=== PATIENT | male | born 1950 | race African-American/Black ===

== ENCOUNTER 2022-04-27 11:15 | Outpatient (CLI) | payer MEDICARE, BC ==
[2022-04-27 13:19] LABS: Anion Gap 23 mmol/L (10-20); BUN (Urea Nitrogen) 87 mg/dL (8.4-25.7); Calc. Creatinine Clearance 0 mL/min (70-130); Calcium 8.6 mg/dL (7.8-10.44); Carbon Dioxide 18 mmol/L (23-31); Chloride 105 mmol/L (98-107); Estimated GFR 3; Glucose 101 mg/dL (83-110); Potassium 5.1 mmol/L (3.5-5.1); Sodium 141 mmol/L (136-145)
[2022-04-27 13:33] LABS: #Basophils 0.1 10x3/uL (0.0-0.2); #Eosinphils 0.3 10x3/uL (0.0-0.5); #Monocytes 0.6 10x3/uL (0.0-1.1); #Neutrophils 6.5 10x3/uL (1.5-8.4); %Basophils 0.5 % (0.0-2.0); %Lymphocytes 18.6 % (18.0-47.0); %Monocytes 6.4 % (0.0-10.0); %Neutrophils 71.2 % (40.0-75.0); Mean Corpuscular HGB CONC 33.2 g/dL (32.0-36.0); Mean Corpuscular Hemoglobin 27.3 pg (27.0-33.0); Mean Corpuscular Volume 82.4 fl (81.2-95.1); Mean Platelet Volume 10.8 fl (7.4-10.4); Platelet Count 130 10x3/uL (150-450); Red Blood Cell (RBC) Count 2.56 10x6/uL (4.32-5.72); White Blood Cell (WBC) Count 9.5 10x3/uL (3.5-10.5)
[2022-04-27 13:55] LABS: Anisocytosis SLIGHT = 6-15 cells (100X) (0-5/hpf); Hypochromia SLIGHT = 6-15 cells (100X) (0-5/hpf); Macrocytosis SLIGHT = 6-15 cells (100X) (0-5/hpf); Microcytosis SLIGHT = 6-15 cells (100X) (0-5/hpf); Schistocytes SLIGHT = 2-5 cells (100X) (0-1/hpf); Target Cells SLIGHT = 2-5 cells (100X) (0-1/hpf); Tear Drops SLIGHT = 2-5 cells (100X) (0-1/hpf)
== END 2022-04-27 11:16 | disposition home or self-care (01) ==
LOC: LABBT 11:15
PROVIDERS: ATTEND Specialist
DX: Z01.818 Encounter for other preprocedural examination (principal); Z20.822 Contact with and (suspected) exposure to COVID-19
CPT/HCPCS: 80048; 85025; 87811; 93005; 93010

== ENCOUNTER 2022-09-28 11:38 | Day surgery (SDC) | payer MEDICARE, BC ==
[2022-09-27 09:33] VITALS: BMI 30.9
[2022-09-28] MEDS ORDERED: fentaNYL PF 100 MCG/2 ML SYRINGE ONE (13:10)
[2022-09-28] MEDS ORDERED: Protamine Sulfate 50 MG/5 ML VIAL ONE (13:12)
[2022-09-28] MEDS ORDERED: Bupivacaine HCl 0.5%/Epinephrine 1:200,000/PF 30 ml Vial ONE (13:12)
[2022-09-28] MEDS ORDERED: Heparin 5,000 UNITS/ML VIAL ONE (13:12)
[2022-09-28] MEDS ORDERED: Lidocaine 2% PF 5 ML VIAL ONE (13:12)
[2022-09-28] MEDS ORDERED: Fentanyl 100 MCG/2 ML VIAL ONE (13:34)
[2022-09-28] MEDS ORDERED: Ropivacaine 0.5% HCl/PF (150 MG/30 ML VIAL) ONE (13:34)
[2022-09-28] MEDS ORDERED: CEFAZOLIN 2 GM VIAL ONE (13:44)
[2022-09-28] MEDS ORDERED: Sodium Chloride 0.9% 100 ML ONE (13:44)
[2022-09-28 13:46] LABS: #Eosinphils 0.2 thou/uL (0.0-0.7); #Monocytes 0.9 thou/uL (0.11-0.59); #Neutrophils 4.5 thou/uL (1.40-6.50); %Basophils 0.1 % (0.0-1.0); %Lymphocytes 26.4 % (21.0-51.0); %Monocytes 11.5 % (0.0-10.0); Hemoglobin 9.1 g/dL (14.0-18.0); Mean Corpuscular HGB CONC 33.2 g/dL (32.0-36.0); Mean Corpuscular Hemoglobin 30.2 pg (27.0-31.0); Mean Platelet Volume 8.2 fL (7.4-10.4); Platelet Count 202 10x3/uL (130-400); RBC Distribution Width 14.4 % (11.5-14.5); Red Blood Cell (RBC) Count 2.99 mill/uL (4.70-6.10); White Blood Cell (WBC) Count 7.5 10x3/uL (4.8-10.8)
[2022-09-28 13:50] LABS: Anion Gap 15 mmol/L (10-20); BUN (Urea Nitrogen) 25 mg/dL (8.4-25.7); Calc. Creatinine Clearance 13 mL/min (70-130); Calcium 8.9 mg/dL (7.8-10.44); Carbon Dioxide 28 mmol/L (23-31); Chloride 98 mmol/L (98-107); Estimated GFR 7; Glucose 87 mg/dL (83-110); Potassium 4.2 mmol/L (3.5-5.1); Sodium 137 mmol/L (136-145)
[2022-09-28] MEDS ORDERED: Ondansetron PF 4 MG/2 ML Vial ONE (14:00)
[2022-09-28] MEDS ORDERED: PROPOFOL 200 MG/20 ML VIAL ONE (14:00)
[2022-09-28] MEDS ORDERED: Dexamethasone 20 MG/5 ML VIAL ONE (14:00)
[2022-09-28] MEDS ORDERED: Lidocaine 1% PF 5 ML VIAL ONE (14:00)
[2022-09-28] MEDS ORDERED: Bupivacaine/Epinephrine 0.25% 30 ML VIAL ONE (14:25)
[2022-09-28] MEDS ORDERED: Heparin 1,000 UNITS/ML VIAL ONE (17:19)
[2022-09-28] MEDS ORDERED: HYDROcodone/Acetaminophen 5/325 mg Tablet ONE (17:57)
== END 2022-09-28 18:10 | disposition home or self-care (01) ==
LOC: SDC 11:38
PROVIDERS: ATTEND Specialist
PROC: 05SC0ZZ Reposition Left Basilic Vein, Open Approach (ICD-10-PCS; principal; 2022-09-28)
DX: N18.6 End stage renal disease (principal); I87.8 Other specified disorders of veins; Z79.899 Other long term (current) drug therapy; Z99.2 Dependence on renal dialysis
CPT/HCPCS: 80048; 85025; 93005; 93010; C1776; J1100; J1644; J2001; J2405; J2704; J2720; J2795; J3010; J3490

== ENCOUNTER 2023-07-15 01:00 | Inpatient (IN) | payer MEDICARE, BC ==
[2023-07-15] MEDS ORDERED: NOREPINEPHRINE 8 MG/250 ML-D5W 250 ML ONE (01:13)
[2023-07-15] MEDS ORDERED: KETAMINE 100 MG/ML (5ML VIAL) ONE (01:17)
[2023-07-15] MEDS ORDERED: Rocuronium Bromide 10 MG/ML (10ML VIAL) ONE (01:17)
[2023-07-15] MEDS ORDERED: Calcium Chloride 1 GM/10 ML Abboject SYRINGE ONE ×2 (01:18→01:20)
[2023-07-15] MEDS ORDERED: Sodium Bicarb 50 MEQ/50 ML Abboject 8.4% SYRINGE ONE (01:20)
[2023-07-15] MEDS ORDERED: Magnesium 2 GM/50 ML BAG (IN WATER) ONE (01:34)
[2023-07-15] MEDS ORDERED: Vasopressin 20 UNITS/ML VIAL ONE ×2 (01:52)
[2023-07-15 01:54] LABS: Analyzer IN Cardio ER; Base Excess (BEa) -14.2 mEq/L (-2.0 to +3.0); CO2 Tension 32.6 mmHg (35.0-45.0); Calcium, Ionized (arterial) 1.37 mmol/L (1.12-1.30); Carboxyhemoglobin (COHb) 3.2 gm% (0.0-3.0); Hematocrit-ABG 22 % (42.0-52.0); Hemoglobin (Hb) 7.6 g/dL (14.0-18.0); O2 Tension (PaO2), arterial 525.9 mmHg (> 70.0)
[2023-07-15 01:54] LABS: Manual Diff?? YES; Mean Corpuscular HGB CONC 30.5 g/dL (32.0-36.0); Mean Corpuscular Hemoglobin 29.1 pg (27.0-31.0); Platelet Count 147 10x3/uL (130-400); RBC Distribution Width 16.6 % (11.5-14.5); Red Blood Cell (RBC) Count 2.58 mill/uL (4.70-6.10); White Blood Cell (WBC) Count 18.6 10x3/uL (4.8-10.8)
[2023-07-15 01:59] LABS: Actual Bicarbonate (HCO3a) 12.5 mEq/L (22-28); Potassium - ABG Lab 7.41 mmol/L (3.70-5.30); Puncture Site RBA; pH, Arterial 7.203 (7.35-7.45)
[2023-07-15] MEDS ORDERED: Fentanyl CADD 100 ML IV SCH (02:00)
[2023-07-15 02:06] LABS: Delete Auto Diff?? YES
[2023-07-15 02:08] LABS: PTT 25.3 sec (22.9-36.1); Prothrombin Time 23.2 sec (12.0-14.7)
[2023-07-15 02:09] LABS: Hematocrit 24.6 % (42.0-52.0); Hemoglobin 7.5 g/dL (14.0-18.0); Mean Corpuscular Volume 95.3 fl (78.0-98.0)
[2023-07-15 02:20] LABS: Troponin I 0.114 ng/mL (< 0.028)
[2023-07-15] MEDS ORDERED: Cefepime 2 GM VIAL ONE (02:28)
[2023-07-15] MEDS ORDERED: Sodium Chloride 0.9% 100 ML ONE (02:28)
[2023-07-15] MEDS ORDERED: Vancomycin 1 GM/200 ML (FROZEN) BAG ONE (02:28)
[2023-07-15] MEDS ORDERED: Sodium Bicarbonate 150 MEQ in Dextrose 5% in Water 1,000 ML IV SCH (02:30)
[2023-07-15 02:37] LABS: Bacteria/HPF None Seen HPF (None Seen); Bilirubin Negative (Negative); Blood, Urine Negative (Negative); CAUTI Indications for Culture Alt mental st,lethar; Clarity Turbid (Clear); Glucose, Urine (Dipstick) 100 mg/dL (Negative); Ketone, Urine Negative (Negative); Leukocyte Negative Leu/uL (Negative); Nitrite Negative (Negative); Protein, Urine (Dipstick) 100 mg/dL (Neg-Trace); RBC/HPF 0-3 HPF (0-3); Specific Gravity, Urine 1.013 (1.002-1.036); Urobilinogen Normal mg/dL (Less than 2); pH, Urine 7.5 (5.0-9.0)
[2023-07-15 02:40] LABS: Urine Culture Reflex No No
[2023-07-15 02:43] LABS: AST (SGOT) 1184 U/L (5-34); Albumin 2.4 g/dL (3.4-4.8); Alkaline Phosphatase 193 U/L (40-110); Anion Gap 37 mmol/L (10-20); BUN (Urea Nitrogen) 63 mg/dL (8.4-25.7); Bilirubin, Total 1.2 mg/dL (0.2-1.2); CK (CPK) 64 U/L (30-200); Calc. Creatinine Clearance 0 mL/min (70-130); Calcium 13.6 mg/dL (7.8-10.44); Carbon Dioxide 11 mmol/L (23-31); Chloride 92 mmol/L (98-107); Estimated GFR 8; Globulin 2.4 g/dL (2.4-3.5); Glucose 402 mg/dL (83-110); Lipase 17 U/L (8-78); Magnesium 5.7 mg/dL (1.6-2.6); Potassium 8.2 mmol/L (3.5-5.1); Protein, Total 4.8 g/dL (5.8-8.1); Sodium 132 mmol/L (136-145)
[2023-07-15 02:57] LABS: ALT (SGPT) 1211 U/L (8-55)
[2023-07-15 03:01] LABS: Anisocytosis SLIGHT = 6-15 cells HPF (0-5); Band 30 % (5-11); Burr Cells SLIGHT = 2-5 cells HPF (0-1); CellaVision Operator ID LAB.JMM; Lymphocytes 14 % (21-51); Macrocytosis SLIGHT = 6-15 cells HPF (0-5); Monocytes 2 % (0-10); Neutrophil 54 % (42-75); Nucleated RBC (Manual Ct) 2 % (0); Platelet Adequacy Comment Platelets Normal; Poikilocytosis SLIGHT = 6-15 cells HPF (0-5); Polychromasia SLIGHT = 2-3 cells HPF (0-2); Smudge Cells 6.6 %; Total Cell Count 106
[2023-07-15] MEDS ORDERED: Insulin Regular 300 UNITS/3 ML VIAL ONE (03:21)
[2023-07-15] MEDS ORDERED: Insulin Regular 300 UNITS/3 ML VIAL IVP SCH (03:45)
[2023-07-15] MEDS ORDERED: Acetaminophen 650 MG Suppository PR PRN (03:57)
[2023-07-15] MEDS ORDERED: Ondansetron ODT 4 MG TAB PO PRN (03:57)
[2023-07-15] MEDS ORDERED: Acetaminophen 325 MG TAB PO PRN (03:57)
[2023-07-15] MEDS ORDERED: Ondansetron PF 4 MG/2 ML Vial IVP PRN (03:57)
[2023-07-15] MEDS ORDERED: Ventilator Sedation Protocol 1 EACH FS SCH (04:00)
[2023-07-15] MEDS ORDERED: LOKELMA 10 GM PACKET PO SCH (04:00)
[2023-07-15] MEDS ORDERED: Lorazepam 2 MG/ML VIAL SLOW IVP PRN (04:15)
[2023-07-15] MEDS ORDERED: Fentanyl BOLUS 250 ML IVPB PRN (04:15)
[2023-07-15] MEDS ORDERED: Propofol BOLUS 1,000 MG/100 ML VIAL IV PRN (04:15)
[2023-07-15] MEDS ORDERED: Propofol 1,000 MG/100 ML VIAL IV PRN (04:15)
[2023-07-15] MEDS ORDERED: Morphine 2 MG/ML VIAL SLOW IVP PRN (04:15)
[2023-07-15] MEDS ORDERED: Pantoprazole 40 MG VIAL ONE (04:28)
[2023-07-15] MEDS ORDERED: Meropenem 1 GM in Sodium Chloride 0.9% 100 ML IVPB SCH ×2 (04:30→06:00)
[2023-07-15] MEDS ORDERED: Pantoprazole 40 MG VIAL IVP SCH ×2 (05:15→21:00)
[2023-07-15] MEDS ORDERED: Hydrocortisone Sod Succ/PF 100 mg/2 ml Vial IVP SCH (05:30)
[2023-07-15 05:55] LABS: AST (SGOT) Greater than 3500 U/L (5-34); Albumin 2.5 g/dL (3.4-4.8); Alkaline Phosphatase 216 U/L (40-110); Anion Gap 39 mmol/L (10-20); BUN (Urea Nitrogen) 65 mg/dL (8.4-25.7); Bilirubin, Total 1.2 mg/dL (0.2-1.2); Calc. Creatinine Clearance 15 mL/min (70-130); Calcium 10.3 mg/dL (7.8-10.44); Carbon Dioxide 9 mmol/L (23-31); Chloride 89 mmol/L (98-107); Estimated GFR 8; Globulin 2.5 g/dL (2.4-3.5); Glucose 356 mg/dL (83-110); Potassium 6.7 mmol/L (3.5-5.1); Sodium 130 mmol/L (136-145)
[2023-07-15 05:59] LABS: ALT (SGPT) 4421 U/L (8-55)
[2023-07-15] MEDS ORDERED: Sodium Bicarb 50 MEQ/50 ML VIAL ONE (06:08)
[2023-07-15] MEDS: NOREPINEPHRINE 8 MG/250 ML-D5W 250 ML IVPB PRN ×3 (06:13→16:20)
[2023-07-15] MEDS ORDERED: Vasopressin 20 UNITS in Sodium Chloride 0.9% 50 ML IV SCH (06:15)
[2023-07-15] MEDS ORDERED: Sodium Bicarb 50 MEQ/50 ML VIAL IVP SCH (06:15)
[2023-07-15] MEDS ORDERED: Hydrocortisone Sod Succ/PF 100 mg/2 ml Vial ONE (06:17)
[2023-07-15] MEDS: EPINEPHrine 4 MG in Dextrose 5% in Water 250 ML IV SCH ×2 (06:53→08:15)
[2023-07-15] MEDS ORDERED: Albumin 25% 100 ML ONE ×2 (08:13→15:17)
[2023-07-15] MEDS: Heparin 5,000 UNITS/ML VIAL SC SCH ×3 (09:07→20:14)
[2023-07-15] MEDS ORDERED: Albumin 25% 25 GM/100 ML BOT IVPB SCH (09:15)
[2023-07-15 10:49] LABS: Hematocrit 28.5 % (42.0-52.0); Hemoglobin 9.4 g/dL (14.0-18.0); Manual Diff?? YES; Mean Corpuscular Hemoglobin 28.8 pg (27.0-31.0); Mean Platelet Volume 9.9 fL (7.4-10.4); Platelet Count 176 10x3/uL (130-400); RBC Distribution Width 16.4 % (11.5-14.5); Red Blood Cell (RBC) Count 3.26 mill/uL (4.70-6.10); White Blood Cell (WBC) Count 12.4 10x3/uL (4.8-10.8)
[2023-07-15 10:53] LABS: Delete Auto Diff?? YES
[2023-07-15 10:54] LABS: Mean Corpuscular Volume 87.4 fl (78.0-98.0)
[2023-07-15 11:14] LABS: Anion Gap 27 mmol/L (10-20); BUN (Urea Nitrogen) 17 mg/dL (8.4-25.7); Calc. Creatinine Clearance 44 mL/min (70-130); Calcium 8.6 mg/dL (7.8-10.44); Carbon Dioxide 18 mmol/L (23-31); Chloride 96 mmol/L (98-107); Estimated GFR 31; Glucose 164 mg/dL (83-110); Potassium 3.8 mmol/L (3.5-5.1); Sodium 137 mmol/L (136-145)
[2023-07-15 11:25] LABS: Anisocytosis SLIGHT = 6-15 cells HPF (0-5); Band 26 % (5-11); Burr Cells SLIGHT = 2-5 cells HPF (0-1); CellaVision Operator ID LAB.MJL; Elliptocytes SLIGHT = 2-5 cells HPF (0-1); Hypochromia SLIGHT = 6-15 cells HPF (0-5); Large Platelets 4.5 % (0-5); Lymphocytes 21 % (21-51); Metamyelocyte 15 % (0-0); Monocytes 9 % (0-10); Neutrophil 29 % (42-75); Nucleated RBC (Manual Ct) 4 % (0); Ovalocytes SLIGHT = 2-5 cells HPF (0-1); Platelet Adequacy Comment Platelets Normal; Poikilocytosis SLIGHT = 6-15 cells HPF (0-5); Polychromasia SLIGHT = 2-3 cells HPF (0-2); Tear Drops SLIGHT = 2-5 cells HPF (0-1); Total Cell Count 111; Vacuoles SLIGHT
[2023-07-15] MEDS ORDERED: Iopamidol-370 76% 500 ML MDV (1 ML CHARGE) ONE (11:27)
[2023-07-15 15:24] LABS: Actual Bicarbonate (HCO3a) 19.4 mEq/L (22-28); Base Excess (BEa) -3.8 mEq/L (-2.0 to +3.0); CO2 Tension 28.6 mmHg (35.0-45.0); Calcium, Ionized (arterial) 1.03 mmol/L (1.12-1.30); Carboxyhemoglobin (COHb) 1.6 gm% (0.0-3.0); Hematocrit-ABG 25 % (42.0-52.0); Hemoglobin (Hb) 8.6 g/dL (14.0-18.0); O2 Tension (PaO2), arterial 141.9 mmHg (> 70.0); Potassium - ABG Lab 5.56 mmol/L (3.70-5.30)
[2023-07-15 15:29] LABS: Puncture Site Arterial Line
[2023-07-15] MEDS ORDERED: Sodium Bicarb 50 MEQ/50 ML Abboject 8.4% SYRINGE IVP SCH ×3 (15:30→17:30)
[2023-07-15] MEDS: Sodium Bicarbonate 150 MEQ in Dextrose 5% in Water 1,000 ML IV SCH (15:58)
[2023-07-15 16:17] LABS: Hematocrit 26.7 % (42.0-52.0); Hemoglobin 8.8 g/dL (14.0-18.0); Manual Diff?? YES; Mean Corpuscular Volume 88.1 fl (78.0-98.0); Mean Platelet Volume 10.6 fL (7.4-10.4); Platelet Count 137 10x3/uL (130-400); RBC Distribution Width 16.6 % (11.5-14.5); Red Blood Cell (RBC) Count 3.03 mill/uL (4.70-6.10); White Blood Cell (WBC) Count 12.7 10x3/uL (4.8-10.8)
[2023-07-15 16:18] LABS: Delete Auto Diff?? YES
[2023-07-15] MEDS: Hydrocortisone Sod Succ/PF 100 mg/2 ml Vial IVP SCH (16:20)
[2023-07-15 16:40] LABS: Anisocytosis SLIGHT = 6-15 cells HPF (0-5); Band 39 % (5-11); Burr Cells SLIGHT = 2-5 cells HPF (0-1); CellaVision Operator ID LAB.KB; Dohle Bodies SLIGHT; Large Platelets 2.9 % (0-5); Lymphocytes 19 % (21-51); Monocytes 4 % (0-10); Myelocyte 1 % (0-0); Neutrophil 37 % (42-75); Nucleated RBC (Manual Ct) 3 % (0); Platelet Adequacy Comment Platelets Normal; Polychromasia SLIGHT = 2-3 cells HPF (0-2); Total Cell Count 103; Toxic Granulation SLIGHT; Vacuoles SLIGHT
[2023-07-15 16:59] LABS: ALT (SGPT) 8704 U/L (8-55)
[2023-07-15 17:10] LABS: Lactic Acid 16.9 mmol/L (0.5-2.2)
[2023-07-15 17:10] LABS: Albumin 2.9 g/dL (3.4-4.8); Alkaline Phosphatase 349 U/L (40-110); Anion Gap 32 mmol/L (10-20); BUN (Urea Nitrogen) 28 mg/dL (8.4-25.7); Bilirubin, Total 2.4 mg/dL (0.2-1.2); Calc. Creatinine Clearance 29 mL/min (70-130); Carbon Dioxide 17 mmol/L (23-31); Chloride 94 mmol/L (98-107); Estimated GFR 19; Globulin 2.6 g/dL (2.4-3.5); Glucose 52 mg/dL (83-110); Potassium 5.5 mmol/L (3.5-5.1); Protein, Total 5.5 g/dL (5.8-8.1); Sodium 137 mmol/L (136-145)
[2023-07-15] MEDS ORDERED: Glucagon 1 MG/ML KIT IM PRN (17:22)
[2023-07-15] MEDS ORDERED: Dextrose 50% Abboject 50 ML SYRINGE SLOW IVP PRN (17:22)
[2023-07-15] MEDS ORDERED: Dextrose 5% in Water 1,000 ML IV PRN (17:22)
[2023-07-15 20:19] LABS: Actual Bicarbonate (HCO3a) 15.5 mEq/L (22-28); Base Excess (BEa) -9.1 mEq/L (-2.0 to +3.0); CO2 Tension 28.6 mmHg (35.0-45.0); Calcium, Ionized (arterial) 1.04 mmol/L (1.12-1.30); Carboxyhemoglobin (COHb) 1.8 gm% (0.0-3.0); Hematocrit-ABG 23 % (42.0-52.0); Hemoglobin (Hb) 7.9 g/dL (14.0-18.0); O2 Tension (PaO2), arterial 173.9 mmHg (> 70.0); Potassium - ABG Lab 5.66 mmol/L (3.70-5.30); pH, Arterial 7.352 (7.35-7.45)
[2023-07-15 20:20] LABS: Puncture Site Arterial Line
[2023-07-15 21:02] LABS: Glucose POC Confirmation 110 mg/dL (83-110)
[2023-07-15 22:35] LABS: Glucose 170 mg/dL (83-110)
[2023-07-16] MEDS: NOREPINEPHRINE 8 MG/250 ML-D5W 250 ML IVPB PRN ×2 (00:14→05:48)
[2023-07-16] MEDS: Hydrocortisone Sod Succ/PF 100 mg/2 ml Vial IVP SCH ×2 (00:15→05:48)
[2023-07-16 00:43] LABS: Glucose 128 mg/dL (83-110)
[2023-07-16 02:51] LABS: Glucose 105 mg/dL (83-110)
[2023-07-16] MEDS ORDERED: Sodium Bicarb 50 MEQ/50 ML VIAL IVP SCH (03:00)
[2023-07-16] MEDS: Sodium Bicarbonate 150 MEQ in Dextrose 5% in Water 1,000 ML IV SCH (03:00)
[2023-07-16 03:30] LABS: Hematocrit 21.7 % (42.0-52.0); Hemoglobin 7.1 g/dL (14.0-18.0); Manual Diff?? YES; Mean Corpuscular HGB CONC 32.7 g/dL (32.0-36.0); Mean Corpuscular Hemoglobin 29.5 pg (27.0-31.0); Mean Platelet Volume 11.6 fL (7.4-10.4); Platelet Count 108 10x3/uL (130-400); RBC Distribution Width 16.6 % (11.5-14.5); Red Blood Cell (RBC) Count 2.41 mill/uL (4.70-6.10); White Blood Cell (WBC) Count 14.2 10x3/uL (4.8-10.8)
[2023-07-16 03:41] LABS: Delete Auto Diff?? YES
[2023-07-16 04:03] LABS: Phosphorus 9.9 mg/dL (2.3-4.7)
[2023-07-16 04:08] LABS: Band 28 % (5-11); CellaVision Operator ID lab.abc; Hypochromia SLIGHT = 6-15 cells HPF (0-5); Large Platelets 5.7 % (0-5); Lymphocytes 19 % (21-51); Metamyelocyte 7 % (0-0); Monocytes 6 % (0-10); Neutrophil 41 % (42-75); Nucleated RBC (Manual Ct) 24 % (0); Platelet Adequacy Comment Platelets Decreased; Polychromasia SLIGHT = 2-3 cells HPF (0-2); Smudge Cells 2.9 %; Total Cell Count 105
[2023-07-16 04:18] LABS: Albumin 2.2 g/dL (3.4-4.8); Alkaline Phosphatase 382 U/L (40-110); Anion Gap 37 mmol/L (10-20); BUN (Urea Nitrogen) 36 mg/dL (8.4-25.7); Bilirubin, Total 2.2 mg/dL (0.2-1.2); Calc. Creatinine Clearance 24 mL/min (70-130); Calcium 8.2 mg/dL (7.8-10.44); Carbon Dioxide 23 mmol/L (23-31); Chloride 87 mmol/L (98-107); Estimated GFR 15; Globulin 1.9 g/dL (2.4-3.5); Glucose 90 mg/dL (83-110); Magnesium 2.9 mg/dL (1.6-2.6); Potassium 6.7 mmol/L (3.5-5.1); Protein, Total 4.1 g/dL (5.8-8.1); Sodium 140 mmol/L (136-145)
[2023-07-16 04:19] LABS: ALT (SGPT) 8020 U/L (8-55)
[2023-07-16 04:25] VITALS: TEMP 98.1
[2023-07-16] MEDS ORDERED: Dextrose 50% Abboject 50 ML SYRINGE SLOW IVP PRN (04:27)
[2023-07-16] MEDS ORDERED: Dextrose 50% Abboject 50 ML SYRINGE SLOW IVP SCH (04:45)
[2023-07-16] MEDS ORDERED: Insulin Regular 300 UNITS/3 ML VIAL IVP SCH (04:45)
[2023-07-16 05:32] VITALS: BMI 28.9
[2023-07-16 06:40] LABS: Glucose 129 mg/dL (83-110)
[2023-07-16] MEDS ORDERED: Sodium Bicarb 50 MEQ/50 ML Abboject 8.4% SYRINGE ONE (08:02)
[2023-07-16] MEDS ORDERED: Calcium Chloride 1 GM/10 ML Abboject SYRINGE ONE (08:02)
[2023-07-16] MEDS ORDERED: EPINEPHrine 1 MG/10 ML Abboject SYRINGE ONE (08:02)
[2023-07-16] MEDS ORDERED: Sodium Bicarb 50 MEQ/50 ML VIAL ONE (08:06)
[2023-07-16] MEDS ORDERED: Meropenem 500 MG in Sodium Chloride 0.9% 100 ML IVPB SCH (17:00)
== END 2023-07-16 08:15 | disposition expired | DRG 871 ==
LOC: ERS 01:00 → CCU 03:03
PROVIDERS: ADMIT Student in an Organized Health Care Education/Training Program; ATTEND Family Medicine
PROC: 03HY32Z Insertion of Monitoring Device into Upper Artery, Percutaneous Approach (ICD-10-PCS; principal; 2023-07-15)
PROC: 4A133B1 Monitoring of Arterial Pressure, Peripheral, Percutaneous Approach (ICD-10-PCS; 2023-07-15)
PROC: 4A133J1 Monitoring of Arterial Pulse, Peripheral, Percutaneous Approach (ICD-10-PCS; 2023-07-15)
PROC: 06HY33Z Insertion of Infusion Device into Lower Vein, Percutaneous Approach (ICD-10-PCS; 2023-07-15)
PROC: 4A133R1 Monitoring of Arterial Saturation, Peripheral, Percutaneous Approach (ICD-10-PCS; 2023-07-15)
PROC: 3E033XZ Introduction of Vasopressor into Peripheral Vein, Percutaneous Approach (ICD-10-PCS; 2023-07-15)
PROC: 30233J1 Transfusion of Nonautologous Serum Albumin into Peripheral Vein, Percutaneous Approach (ICD-10-PCS; 2023-07-15)
PROC: 0BH17EZ Insertion of Endotracheal Airway into Trachea, Via Natural or Artificial Opening (ICD-10-PCS; 2023-07-15)
PROC: 5A1935Z Respiratory Ventilation, Less than 24 Consecutive Hours (ICD-10-PCS; 2023-07-15)
PROC: 3E03329 Introduction of Other Anti-infective into Peripheral Vein, Percutaneous Approach (ICD-10-PCS; 2023-07-15)
PROC: 5A12012 Performance of Cardiac Output, Single, Manual (ICD-10-PCS; 2023-07-16)
DX: A41.9 Sepsis, unspecified organism (principal); J96.01 Acute respiratory failure with hypoxia; N18.6 End stage renal disease; R65.21 Severe sepsis with septic shock; K72.00 Acute and subacute hepatic failure without coma; I69.352 Hemiplegia and hemiparesis following cerebral infarction affecting left dominant side; E87.20 Acidosis, unspecified; G93.1 Anoxic brain damage, not elsewhere classified; I12.0 Hypertensive chronic kidney disease with stage 5 chronic kidney disease or end stage renal disease; I47.20 Ventricular tachycardia, unspecified; K21.9 Gastro-esophageal reflux disease without esophagitis; E87.5 Hyperkalemia; R74.01 Elevation of levels of liver transaminase levels; R19.7 Diarrhea, unspecified; D64.9 Anemia, unspecified; I48.91 Unspecified atrial fibrillation; I46.8 Cardiac arrest due to other underlying condition; E83.41 Hypermagnesemia; E83.52 Hypercalcemia; I44.0 Atrioventricular block, first degree; R53.81 Other malaise; E66.9 Obesity, unspecified; E11.22 Type 2 diabetes mellitus with diabetic chronic kidney disease; Z68.28 Body mass index [BMI] 28.0-28.9, adult; Z79.899 Other long term (current) drug therapy; Z99.2 Dependence on renal dialysis; Z98.890 Other specified postprocedural states; Z78.1 Physical restraint status
CPT/HCPCS: 36416; 36600; 70450; 71045; 74177; 80053; 81001; 82550; 82805; 83605; 83690; 83735; 83880; 84100; 84145; 84443; 84484; 85025; 85610; 85730; 86850; 86900; 86901; 87086; 90935; 93005; 93010; 94002; 94003; C9113; G0257; J0171; J0692; J1644; J1720; J1815; J2185; J2704; J3010; J3370-JW; J3475; J3490; J7070; J7999; P9047; Q9967